=== PATIENT | male | born 1965 | race Caucasian/White ===

== ENCOUNTER 2016-12-02 14:33 | Emergency (ER) | payer OTHER ==
--- NOTE | 2016-12-02 14:46 | CPEKG ---
Heart Rate: 63 RR Interval: 952 P-R Interval: 156 QRSD Interval: 148 QT Interval: 460 QTC Interval: 471 P [place]: 68 QRS [place]: 86 T Wave [place]: 15 EKG Severity - ABNORMAL ECG - EKG Impression: SINUS RHYTHM EKG Impression: RBBB AND LPFB Electronically Signed By: Kandis Jones 02-Dec-2016 21:06:48
--- NOTE | 2016-12-02 14:59 | EDPHY ---
H & P Time Seen by Provider: 12/02/16 14:54 HPI/ROS: CHIEF COMPLAINT: Dizziness HISTORY OF PRESENT ILLNESS: The patient is a 51-year-old male presenting with intermittent dizziness. The patient travels frequently for work. Recently when travelling on the plane he feels his ears are unable to pop. He tried holding his nose and blowing out air, but immediately after developed severe dizziness described as a spinning sensation. This resolved after sleeping, however he continues to feel intermittent ear fullness. The patient tried to pop his ears today and had sudden onset of vertigo. He developed the same dizziness that resolved after a few hours. Asymptomatic now. He denies nausea or vomiting. Right ear cerumen disimpaction yesterday. He has not seen an ENT specialist. No headache hearing loss or ringing in the ears. REVIEW OF SYSTEMS: A comprehensive 10 point review of systems is otherwise negative aside from elements mentioned in the history of present illness. Past Medical/Surgical History: NE with stents x3, Hypertension Social History: Lives in [place], travels frequently for work. Smoking Status: Never smoked Physical Exam: General Appearance: Alert, pleasant Eyes: Pupils equal and round, no conjunctival pallor or injection, no nystagmus ENT, Mouth: Mucous membranes moist Neck: Normal inspection Respiratory: Lungs are clear to auscultation Cardiovascular: Regular rate and rhythm Gastrointestinal: Abdomen is soft and non-tender Neurological: Alert, oriented x3, cranial nerves II through XII intact, motor 5 /5, sensory intact to light touch, normal gait. Skin: Warm and dry, no rash Extremities: Nontender, no pedal edema Psychiatric: Mood and affect normal Constitutional: Initial Vital Signs Temperature (C) 36.8 C 12/02/16 14:43 Heart Rate 67 12/02/16 14:43 Respiratory Rate 16 12/02/16 14:43 Blood Pressure 133/79 H 12/02/16 14:43 O2 Sat (%) 96 12/02/16 14:43 O2 Delivery Mode Room Air Allergies/Adverse Reactions: No Known Allergies Allergy (Unverified 12/02/16 14:39) Home Medications: Medication Instructions Recorded Aspirin 12/02/16 Hydrochlorothiazide 12/02/16 Lipitor 12/02/16 Lisinopril 12/02/16 Plavix 12/02/16 Toprol Xl 100 mg (*) 12/02/16 Medical Decision Making - Diagnostics EKG Interpretation: The 12 lead EKG was interpreted by myself. See hard copy and/or "tracemaster" electronic copy for interpretation: Sinus rhythm. RBBB and LPFB. ED Course/Re-evaluation: Patient presents with sudden onset of dizziness after trying to "un-pop" his ears.Patient's dizziness resolved after a few hours. On exam patient has no nystagmus and is asymptomatic Patient received Meclizine in the ED. He was reevaluated and had a normal gait. Patient would like to be discharged home. He will followup with ENT when he returns to [place]. Differential Diagnosis: Differential diagnosis includes TIA, stroke, intracranial hemorrhage, tumor, electrolyte abnormality and acute labyrinthitis. - Data Points Medications Given: Discontinued Medications Meclizine HCl (Meclizine Hcl) 25 mg PO EDNOW ONE Stop: 12/02/16 15:16 Last Admin: 12/02/16 15:18 Dose: 25 mg Departure - Departure Disposition: Home, Routine, Self-Care Clinical Impression: Vertigo Condition: Good Instructions: Vertigo (ED) Additional Instructions: Followup with an Ear, Nose, and Throat Specialist for further evaluation when you return home. Take Antivert as directed for recurrent symptoms. Try taking this prior to flying. Referrals: LAWOR,DELILAHK [Other] - As per Instructions Report Scribed for: Kandis Jones Report Scribed by: Aria Sorenson Date of Report: 12/02/16 Time of Report: 14:57 Physician Review and Approval Statement: 12/02/16 14:57 Portions of this note were transcribed by a medical records secretary. I personally performed the history, physical exam, and medical decision-making; and confirmed the accuracy of the information in the transcribed note.
[2016-12-02] MEDS ORDERED: MECLIZINE HCL 25 MG TAB PO ONE (15:15)
[2016-12-02 15:30] VITALS: BP 113/75; PULSE 80; RESP 18; TEMP 97.9; O2SAT 97
== END 2016-12-02 15:29 | disposition home or self-care (01) ==
DX: R42 Dizziness and giddiness (principal); Z79.82 Long term (current) use of aspirin